=== PATIENT | male | born 1965 | race Caucasian/White ===

== ENCOUNTER 2017-10-01 14:14 | Emergency (ER) | payer OTHER ==
--- NOTE | 2017-10-01 14:23 | EDPHY ---
H & P Stated Complaint: intermittent l cp for months/worse since 09/21 pcp dx gerd/rx omeprazole Time Seen by Provider: 10/01/17 14:23 HPI/ROS: CHIEF COMPLAINT: Chest pain HISTORY OF PRESENT ILLNESS: The patient presents to the emergency department with chest pain. The patient reports a longstanding history of mild intermittent left upper quadrant pain. Over the past week he has been experiencing an increase in the frequency of his pain. It is not exertional however has been associated with symptoms of presyncope. The patient saw his primary care provider who reportedly diagnosed him with acid reflux and started him on a proton pump inhibitor which has not improved his symptoms. The patient has no history of coronary artery disease. He does have a history of a chronically elevated right hemidiaphragm. He states that his pain is mildly pleuritic in nature. The patient denies any headache, focal numbness or weakness. He denies additional acute complaints. REVIEW OF SYSTEMS: A comprehensive 10 point review of systems is otherwise negative aside from elements mentioned in the history of present illness. Source: Patient Exam Limitations: No limitations - Personal History Current Tetanus/Diphtheria Vaccine: Yes Tetanus Vaccine Date: 2012 - Medical/Surgical History Hx Asthma: No Hx Chronic Respiratory Disease: No Hx Diabetes: No Hx Cardiac Disease: No Hx Renal Disease: No Hx Cirrhosis: No Hx Alcoholism: No Hx HIV/AIDS: No Hx Splenectomy or Spleen Trauma: No Other PMH: GERD. ELEVATED HEMIDIAPHRAGM. ORTHO SURGERY(HAND). PNEUMONIA - Social History Smoking Status: Never smoked - Physical Exam Exam: General Appearance: Alert, no distress Eyes: Pupils equal and round no pallor or injection ENT, Mouth: Mucous membranes moist Respiratory: There are no retractions, lungs are clear to auscultation Cardiovascular: Regular rate and rhythm Gastrointestinal: Abdomen is soft and nontender, no masses, bowel sounds normal Neurological: A&O, normal motor function, normal sensory exam, normal cranial nerves Skin: Warm and dry, no rashes Musculoskeletal: Neck is supple nontender Extremities: symmetrical, full range of motion Constitutional: Initial Vital Signs Temperature (C) 36.4 C 10/01/17 14:18 Heart Rate 81 10/01/17 14:18 Respiratory Rate 17 10/01/17 14:18 Blood Pressure 117/98 H 10/01/17 14:18 O2 Sat (%) 92 10/01/17 14:18 O2 Delivery Mode Room Air Allergies/Adverse Reactions: acetaminophen [From Percocet] Allergy (Verified 10/01/17 14:18) NAUSEA oxycodone HCl [From Percocet] Allergy (Verified 10/01/17 14:18) NAUSEA GAMMAGLOBULIN Allergy (Uncoded 02/15/14 09:48) Home Medications: Medication Instructions Recorded Omeprazole 10/01/17 Medical Decision Making - Diagnostics EKG Interpretation: EKG: Complete interpretation has been separately recorded in the [employer] archive. Summary impression: Sinus rhythm, rate 80 Imaging Results: Imaging Impressions Chest/Thorax CTA 10/01/17 16:28 Impression: 1. No definite pulmonary thromboemboli. 2. Chronic elevated right hemidiaphragm, with chronic linear atelectasis or scarring in the right middle lobe and lingula. 3. No acute pneumonia, pleural effusion, or pneumothorax. 4. No aortic aneurysm or dissection. Findings and recommendations discussed with Emergency Department physician, Alexander Mcghee M.D., at 1749 hours, on October 01, 2017. Final report concurs with initial preliminary interpretation. A test result has been communicated to a licensed care provider and documented in the [employer] Critical Result system on 10/01/2017 17:49, Message ID [id number]. ED Course/Re-evaluation: The patient presents to the ED for evaluation of atypical chest pain with mild symptoms of presyncope. The patient was noted to be neurologically intact. The patient's EKG demonstrates no evidence of ischemia. The patient's troponin is normal. The patient did have a mild pleuritic component to his pain. A D- dimer was checked and found to be elevated at 3. A CT pulmonary angiogram demonstrates no evidence of PE. The patient does have some atelectasis in a chronically elevated hemidiaphragm. At this point time the etiology of the patient's symptoms are somewhat uncertain. I do think it is reasonable to have him follow up with our on-call corporation lawyer for any ongoing symptoms. The patient should return to the emergency department for markedly worsening symptoms or other concerns. Differential Diagnosis: Title diagnosis considered includes acute coronary syndrome, pulmonary embolism , dehydration, metabolic abnormality, labyrinthitis - Data Points Laboratory Results: Laboratory Results 10/01/17 14:35 10/01/17 14:35 10/01/17 10/01/17 10/01/17 14:35 14:35 14:06 WBC 7.59 10^3/uL 10^3/uL (3.80-9.50) RBC 5.44 10^6/uL 10^6/uL (4.40-6.38) Hgb 16.3 g/dL g/dL (13.7-17.5) Hct 47.7 % % (40.0-51.0) MCV 87.7 fL fL (81.5-99.8) MCH 30.0 pg pg (27.9-34.1) MCHC 34.2 g/dL g/dL (32.4-36.7) RDW 12.5 % % (11.5-15.2) Plt Count 257 10^3/uL 10^3/uL (150-400) MPV 10.6 fL fL (8.7-11.7) Neut % (Auto) 68.0 % % (39.3-74.2) Lymph % (Auto) 21.5 % % (15.0-45.0) [place] % (Auto) 8.6 % % (4.5-13.0) Eos % (Auto) 0.9 % % (0.6-7.6) Baso % (Auto) 0.7 % % (0.3-1.7) Nucleat RBC Rel Count 0.0 % % (0.0-0.2) Absolute Neuts (auto) 5.17 10^3/uL 10^3/uL (1.70-6.50) Absolute Lymphs (auto) 1.63 10^3/uL 10^3/uL (1.00-3.00) Absolute Monos (auto) 0.65 10^3/uL 10^3/uL (0.30-0.80) Absolute Eos (auto) 0.07 10^3/uL 10^3/uL (0.03-0.40) Absolute Basos (auto) 0.05 10^3/uL 10^3/uL (0.02-0.10) Absolute Nucleated RBC 0.00 10^3/uL 10^3/uL (0-0.01) Immature Gran % 0.3 % % (0.0-1.1) Immature Gran # 0.02 10^3/uL 10^3/uL (0.00-0.10) D-Dimer 3.03 ug/mLFEU H ug/mLFEU (0.00-0.50) Sodium 141 mEq/L mEq/L (135-145) Potassium 4.2 mEq/L mEq/L (3.5-5.2) Chloride 101 mEq/L mEq/L (97-110) Carbon Dioxide 27 mEq/l mEq/l (22-31) Anion Gap 13 mEq/L mEq/L (8-16) BUN 14 mg/dL mg/dL (7-23) Creatinine 0.8 mg/dL mg/dL (0.7-1.3) Estimated GFR > 60 Glucose 95 mg/dL mg/dL (70-100) Calcium 9.7 mg/dL mg/dL (8.5-10.4) Troponin I < 0.012 ng/mL ng/mL (0.000-0.034) Departure - Departure Disposition: Home, Routine, Self-Care Clinical Impression: Chest pain, Pre-syncope Condition: Good Instructions: Chest Pain (ED) Additional Instructions: 1. Based upon the testing done in the Emergency Department today we see no evidence of a heart attack. 2. We are unable to fully exclude coronary artery disease based upon the testing available in the Emergency Department. 3. For this reason, we would like you to be seen by cardiology for consideration of additional testing within the next 3 days. 4. Please contact the corporation lawyer you have been referred to schedule this appointment as soon as possible. Their offices are typically open from 8:30am- 5pm M-F. 5. Please return to the Emergency Department immediately for any recurrent chest pain, difficulty breathing or other concerns. Referrals: Vandana Bonilla MD [Medical Doctor] - As per Instructions
--- NOTE | 2017-10-01 14:29 | CPEKG ---
Heart Rate: 80 RR Interval: 750 P-R Interval: 144 QRSD Interval: 74 QT Interval: 368 QTC Interval: 425 P Uledi: 40 QRS Uledi: 17 T Wave Uledi: 61 EKG Severity - NORMAL ECG - EKG Impression: SINUS RHYTHM Electronically Signed By: Alexander Mcghee 01-Oct-2017 14:33:37
[2017-10-01 14:44] LABS: PLATELET COUNT 257 10^3/uL (150-400)
[2017-10-01] MEDS ORDERED: IOPAMIDOL (ISOVUE 370) 100 ML BTL IV ONE (16:56)
[2017-10-01 18:40] VITALS: BP 125/78
== END 2017-10-01 18:40 | disposition home or self-care (01) ==
DX: R07.9 Chest pain, unspecified (principal); R55 Syncope and collapse
CPT/HCPCS: Q9967